=== PATIENT | female | born 1995 | race Caucasian/White ===

== ENCOUNTER 2016-10-04 09:54 | Emergency (ER) | payer OTHER ==
[~2016-10-04] VITALS: Ht 152.4 cm; Wt 53.1 kg
[2016-10-04 10:00] VITALS: BP 94/61
--- NOTE | 2016-10-04 10:04 | NUR ---
Pt ambulated to bed 6.
--- NOTE | 2016-10-04 10:10 | NUR ---
21/F presents to ED for evaluation of vaginal bleeding. Pt states she had an approximately 2 weeks ago. Pt states she was about 5 weeks and was given the pill to have an . Pt states 2 days ago her bleeding started to become heavy and cramping. Pt states "I had to florez my pad 3 times last night and they were full of blood." Pt skin is warm, dry, normal in color for ethnicity. Pt denies N/V/D. Pt c/o dizziness, denies syncope. Patient is AOX4, ambulates with steady gait. G-3 P-1 A-2. Pt states she has had two abortions. Pt appears calm and relaxed. VSS.
--- NOTE | 2016-10-04 10:19 | NUR ---
Patient being evaluated by physician at bedside.
[2016-10-04] MEDS ORDERED: HYDROcodone/APAP 10/325 MG 1 TAB TAB PO ONE (10:20)
[2016-10-04] MEDS ORDERED: NACL 0.9% 1,000 ML IV ONE (10:30)
[2016-10-04 10:35] LABS: BASOPHILS # (AUTO) 0.1 K/uL (0.00-0.22); BASOPHILS % (AUTO) 1.8 % (0.0-2.0); EOSINOPHILS # (AUTO) 0.2 K/uL (0-0.4); EOSINOPHILS % (AUTO) 2.6 % (0.0-4.0); HEMATOCRIT 34.4 % (36-48); HEMOGLOBIN 11.1 g/dL (12.0-16.0); LYMPHOCYTES # (AUTO) 1.7 K/uL (2.5-16.5); LYMPHOCYTES % (AUTO) 26.4 % (20.5-51.1); MEAN CORPUSCULAR HEMOGLOBIN 29 pg (27-31); MEAN CORPUSCULAR HGB CONC 32 g/dL (33-37); MEAN CORPUSCULAR VOLUME 90 fL (80-94); MONOCYTES # (AUTO) 0.3 K/uL (0.8-1.0); MONOCYTES % (AUTO) 5.1 % (1.7-9.3); NEUTROPHILS # (AUTO) 4.1 K/uL (1.8-7.7); NEUTROPHILS % (AUTO) 64.1 % (42.2-75.2); PLATELET COUNT (AUTO) 293 K/uL (140-450); RED BLOOD CELL COUNT(AUTO) 3.81 MIL/uL (4.20-5.40); WHITE BLOOD COUNT (AUTO) 6.4 K/uL (4.8-10.8)
[2016-10-04 10:40] LABS: APPEARANCE,URINE HAZY (CLEAR); BILIRUBIN,URINE NEGATIVE (NEGATIVE); BLOOD, URINE 3+ (NEGATIVE); COLOR,URINE YELLOW (YELLOW); LEUKOCYTE ESTERASE ,URINE NEGATIVE (NEGATIVE); NITRITE, URINE NEGATIVE (NEGATIVE); PH,URINE 8.5 (5.0-9.0); PROTEIN,URINE NEGATIVE (NEGATIVE); UGLUCOSE NEGATIVE (NEGATIVE); UROBILINOGEN,URINE 0.2 EU/dL (0.2 - 1)
--- NOTE | 2016-10-04 10:40 | NUR ---
Patient taken to CT via w/c.
[2016-10-04 10:54] LABS: BACTERIA,URINE None Seen /HPF (None Seen); RBC,URINE TOO NUMEROUS TO COUN /HPF (0-5); SQUAMOUS EPITHELIAL CELL,UR 3 /LPF (0-3 (FEW)); WBC,URINE 0-5 (RARE) /HPF (0-5)
[2016-10-04 10:54] LABS: INR 1.1 (0.8-1.2); PARTIAL THROMBOPLASTIN TIME 25.9 secs (22-35.6)
[2016-10-04 10:55] LABS: URINE AMORPHOUS PHOSPHATES 1+ /HPF (None Seen)
--- NOTE | 2016-10-04 11:44 | NUR ---
JOSEFINA BRAR accompanied DR. WHITTAKER FOR female patient Pelvic Exam AT THIS TIME.
[2016-10-04] MEDS ORDERED: MORPHINE SULFATE 2 MG/ML SYR IVP ONE (11:50)
[2016-10-04] MEDS ORDERED: ONDANSETRON 4 MG/2 ML VIAL IVP ONE (11:50)
--- NOTE | 2016-10-04 12:08 | NUR ---
US AT BEDSIDE
--- NOTE | 2016-10-04 12:18 | NUR ---
Patient appears to be resting comfortably in bed. Vital Signs within normal limits. Respirations even and unlabored.
--- NOTE | 2016-10-04 13:03 | NUR ---
IV removed, catheter intact and site benign. Applied folded 4x4 gauze and tape to stop bleeding.
[2016-10-04 13:09] VITALS: BP 103/64
--- NOTE | 2016-10-04 13:09 | NUR ---
Chart checked and completed. The patient's care was reviewed and supervised by Marissa Kovacs RN.
--- NOTE | 2016-10-04 13:09 | NUR ---
Patient discharged with v/s stable. Written and verbal after care instructions given and explained. Patient alert, oriented and verbalized understanding of instructions. Ambulatory with steady gait. All questions addressed prior to discharge. ID band removed. Patient advised to follow up with PMD. Rx of MOTRIN 600MG, SUDAFED 12 HOUR 120MG, METHERGINE 0.2MG TAB, NORCO 5MG-325MG & AZITHROMYCIN 250MG given. Patient educated on indication of medication including possible reaction and side effects. Opportunity to ask questions provided and answered.
== END 2016-10-04 13:09 | disposition home or self-care (01) ==
LOC: MED 09:54
DX: O02.1 Missed abortion (principal); O08.1 Delayed or excessive hemorrhage following ectopic and molar pregnancy
CPT/HCPCS: 36415; 76830; 81001; 81025; 84702; 85025; 85610; 85730; 96361; 96374; 96375; 99285; J2270; J2405; J7030

== ENCOUNTER 2016-10-05 08:36 | Emergency (ER) | payer OTHER ==
[~2016-10-05] VITALS: Ht 152.4 cm; Wt 52.6 kg
[2016-10-05 08:48] VITALS: BP 102/53
--- NOTE | 2016-10-05 08:58 | NUR ---
AMBULATED TO ER BED 4
--- NOTE | 2016-10-05 09:18 | NUR ---
21/F TO ED WITH C/O VAG BLEEDING X3 DAYS WITH HEADACHE, CHEST PAIN, AND ABD PAIN. PT STATES PAIN 7/10. CAP REFILL <3 SECS. LUNGS CLEAR BILAT. HR EVEN AND REGULAR. AAOX4. VSS. NO SIGNS OF DISTRESS.
[2016-10-05] MEDS ORDERED: METOCLOPRAMIDE 10 MG TAB PO ONE (09:50)
[2016-10-05] MEDS ORDERED: DEXAMETHASONE 4 MG/ML VIAL PO ONE (09:50)
[2016-10-05 10:07] LABS: BASOPHILS # (AUTO) 0.1 K/uL (0.00-0.22); BASOPHILS % (AUTO) 0.9 % (0.0-2.0); EOSINOPHILS # (AUTO) 0.2 K/uL (0-0.4); EOSINOPHILS % (AUTO) 2.9 % (0.0-4.0); HEMATOCRIT 31.4 % (36-48); HEMOGLOBIN 10.2 g/dL (12.0-16.0); LYMPHOCYTES # (AUTO) 1.9 K/uL (2.5-16.5); LYMPHOCYTES % (AUTO) 23.9 % (20.5-51.1); MEAN CORPUSCULAR HEMOGLOBIN 30 pg (27-31); MEAN CORPUSCULAR HGB CONC 32 g/dL (33-37); MEAN CORPUSCULAR VOLUME 92 fL (80-94); MONOCYTES # (AUTO) 0.6 K/uL (0.8-1.0); MONOCYTES % (AUTO) 8.1 % (1.7-9.3); NEUTROPHILS % (AUTO) 64.2 % (42.2-75.2); PLATELET COUNT (AUTO) 271 K/uL (140-450); RED BLOOD CELL COUNT(AUTO) 3.41 MIL/uL (4.20-5.40); RED CELL DISTRIBUTION WIDTH 12.1 % (11.6-13.7); WHITE BLOOD COUNT (AUTO) 7.8 K/uL (4.8-10.8)
[2016-10-05 11:19] VITALS: BP 102/53
--- NOTE | 2016-10-05 11:19 | NUR ---
PT LEFT WITHOUT DISCHARGE INSTRUCTIONS. PRESCRIPTION FOR FERROUS SULFATE AND COLACE. PT IS AAOX4. VSS.
== END 2016-10-05 11:19 | disposition home or self-care (01) ==
LOC: MED 08:36
DX: N93.9 Abnormal uterine and vaginal bleeding, unspecified (principal); D64.9 Anemia, unspecified; R51 Headache
CPT/HCPCS: 36415; 85025; 99284; J1100; J8597; Q0163

== ENCOUNTER 2016-10-05 23:05 | Emergency (ER) | payer OTHER ==
[~2016-10-05] VITALS: Ht 152.4 cm; Wt 52.6 kg
[2016-10-05 23:14] VITALS: BP 123/73
[2016-10-05 23:43] LABS: BASOPHILS % (AUTO) 0.4 % (0.0-2.0); EOSINOPHILS # (AUTO) 0.1 K/uL (0-0.4); EOSINOPHILS % (AUTO) 1.4 % (0.0-4.0); HEMOGLOBIN 10.7 g/dL (12.0-16.0); LYMPHOCYTES # (AUTO) 1.2 K/uL (2.5-16.5); LYMPHOCYTES % (AUTO) 12.6 % (20.5-51.1); MEAN CORPUSCULAR HEMOGLOBIN 30 pg (27-31); MEAN CORPUSCULAR HGB CONC 33 g/dL (33-37); MEAN CORPUSCULAR VOLUME 91 fL (80-94); MONOCYTES # (AUTO) 0.4 K/uL (0.8-1.0); MONOCYTES % (AUTO) 3.8 % (1.7-9.3); NEUTROPHILS # (AUTO) 8.2 K/uL (1.8-7.7); NEUTROPHILS % (AUTO) 81.8 % (42.2-75.2); PLATELET COUNT (AUTO) 331 K/uL (140-450); RED BLOOD CELL COUNT(AUTO) 3.51 MIL/uL (4.20-5.40); RED CELL DISTRIBUTION WIDTH 12.1 % (11.6-13.7); WHITE BLOOD COUNT (AUTO) 9.9 K/uL (4.8-10.8)
[2016-10-05 23:51] LABS: ANION GAP 11.5 (8-16); CALCIUM 8.8 mg/dL (8.5-10.1); CARBON DIOXIDE 29.8 mmol/L (21-32); CREATININE 0.7 mg/dL (0.6-1.3); POTASSIUM 4.3 mmol/L (3.5-5.1)
--- NOTE | 2016-10-06 01:00 | NUR ---
PATIENT LEFT WITHOUT BEING SEEN BY DR. Radford. NO FURTHER CARE PROVIDED FOR PATIENT.
== END 2016-10-06 01:00 | disposition left against medical advice (07) ==
LOC: MED 23:09
DX: O46.8X1 Other antepartum hemorrhage, first trimester (principal); Z53.21 Procedure and treatment not carried out due to patient leaving prior to being seen by health care provider
CPT/HCPCS: 36415; 80048; 84702; 85025; 99281

== ENCOUNTER 2016-10-07 08:34 | Emergency (ER) | payer OTHER ==
[~2016-10-07] VITALS: Ht 152.4 cm; Wt 52.6 kg
[2016-10-07 08:39] VITALS: BP 83/43
--- NOTE | 2016-10-07 08:42 | NUR ---
PATIENT AMBULATED TO BED 8 AT THIS TIME
--- NOTE | 2016-10-07 08:53 | NUR ---
PATIENT PRESENTS TO ED WITH VAGINAL BLEEDING UP TO 3 PADS IN 1 HOUR S/P TERMINATED . PT STATES SHE LOWER BACK PAIN . DENIES N/V/D; SKIN IS PINK/WARM/DRY; AAOX4 WITH EVEN AND STEADY GAIT; PT DENIES ANY FEVER, SOB, OR COUGH AT THIS TIME; PATIENT STATES PAIN OF 6/10 AT THIS TIME; VSS; PATIENT POSITIONED FOR COMFORT; HOB ELEVATED; BEDRAILS UP X1; BED DOWN.
--- NOTE | 2016-10-07 08:54 | NUR ---
DR THOMPSON AT BEDSIDE
--- NOTE | 2016-10-07 09:04 | NUR ---
NOTIFIED DR THOMPSON OF FAINT POSITIVE ON HCG, AND OF URINE DIP RESULTS.
[2016-10-07] MEDS ORDERED: KETOROLAC 60 MG/2 ML VIAL IM ONE (09:05)
--- NOTE | 2016-10-07 09:12 | NUR ---
AFTER I OPENED THE TOREDOL, EXPLAINED SIDE EFFECTS, AND REASON FOR THE MEDICATION THE PATIENT REFUSED THE MEDICATION, MEDICATION WASTED, DR THOMPSON NOTIFED.
--- NOTE | 2016-10-07 09:28 | NUR ---
WHILE PROVIDING PATIENT WITH HER DISCHARGE INSTRUCTIONS, THE PATIENT STATED SHE WANTED TO SPEAK TO DR THOMPSON ABOUT SOME CONCERNS, STOPPED DISCHARGE PROCESS, NOTIFIED DR THOMPSON AND HE ADVISED HE WOULD GO AND SPEAK WITH HER.
--- NOTE | 2016-10-07 09:34 | NUR ---
DR THOMPSON AT BEDSIDE AND SPOKE WITH PATIENT REGARDING HER CONCERNS
--- NOTE | 2016-10-07 09:35 | NUR ---
Patient discharged with v/s stable. Written and verbal after care instructions given and explained. Patient alert, oriented and verbalized understanding of instructions. Ambulatory with steady gait. All questions addressed prior to discharge. ID band removed. Patient advised to follow up with PMD. Rx of NORCO, CIPRO given. Patient educated on indication of medication including possible reaction and side effects. Opportunity to ask questions provided and answered. GIVING INSTRUCTIONS TO PATIENT WAS DIFFICULT SHE WAS BUSY TALKING TO SOMEONE ON HER CELL PHONE.
[2016-10-07 09:37] VITALS: BP 83/43
== END 2016-10-07 09:35 | disposition home or self-care (01) ==
LOC: MED 08:34
DX: N93.9 Abnormal uterine and vaginal bleeding, unspecified (principal); N12 Tubulo-interstitial nephritis, not specified as acute or chronic; F17.200 Nicotine dependence, unspecified, uncomplicated
CPT/HCPCS: 81002; 81025; 99283; J1885

== ENCOUNTER 2016-10-12 18:08 | Emergency (ER) | payer OTHER ==
[~2016-10-12] VITALS: Ht 152.4 cm; Wt 52.6 kg
[2016-10-12 18:18] VITALS: BP 109/83
--- NOTE | 2016-10-12 19:35 | NUR ---
TO ER OF 3
--- NOTE | 2016-10-12 19:35 | NUR ---
Patient being evaluated by physician.
[2016-10-12 20:55] VITALS: BP 109/83
--- NOTE | 2016-10-12 20:55 | NUR ---
Patient discharged with v/s stable. Written and verbal after care instructions given and explained BY DR NELSON. Patient verbalized understanding. Ambulatory with steady gait. All questions addressed prior to discharge. Advised to follow up with PMD.
== END 2016-10-12 20:55 | disposition home or self-care (01) ==
LOC: MED 18:08
DX: J06.9 Acute upper respiratory infection, unspecified (principal); J02.9 Acute pharyngitis, unspecified; F17.200 Nicotine dependence, unspecified, uncomplicated
CPT/HCPCS: 99281; 99283

== ENCOUNTER 2018-08-01 21:41 | Emergency (ER) | payer SELFPAY ==
[~2018-08-01] VITALS: Ht 152.4 cm; Wt 65.8 kg
[2018-08-01 21:49] VITALS: BP 104/69
--- NOTE | 2018-08-01 21:53 | NUR ---
PT TAKEN TO BED 9
--- NOTE | 2018-08-01 21:55 | NUR ---
PT C/O LEG AND LOWER BACK PAIN. 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 PT STATES PAIN 01/18
[2018-08-01] MEDS ORDERED: KETOROLAC 60 MG/2 ML VIAL IM ONE (22:00)
--- NOTE | 2018-08-01 23:10 | NUR ---
Dr. Duffy evaluating patient at bedside.
[2018-08-01 23:38] VITALS: BP 110/70
== END 2018-08-01 23:39 | disposition home or self-care (01) ==
LOC: MED 21:41
DX: M25.562 Pain in left knee (principal); M54.5 Low back pain
CPT/HCPCS: 81002; 81025; 96372; 99283; J1885